=== PATIENT | female | born 1960 | race Caucasian/White ===

== ENCOUNTER → 2019-03-23 | Outpatient (CLI) | payer OTHER ==
[~2019-03-23] MED LIST: APIX5TAB PO; ASPI-496 PO; DILT180C53 PO; FLEC100T PO; REGADENOSON 0.4 MG/5 ML SYRINGE ONE
== END | disposition home or self-care (01) ==
LOC: CFH 08:20
PROVIDERS: ATTEND Nurse Practitioner Family
DX: Z01.810 Encounter for preprocedural cardiovascular examination (principal); I48.0 Paroxysmal atrial fibrillation; Z83.3 Family history of diabetes mellitus; Z82.49 Family history of ischemic heart disease and other diseases of the circulatory system
CPT/HCPCS: 78452; 93017; A9502; J2785

== ENCOUNTER → 2019-05-15 | Outpatient (CLI) | payer OTHER ==
[~2019-05-15] MED LIST changes: +HYDR-36 PO; +METH750T87 PO; +ONDA4TAB7 PO; -REGADENOSON 0.4 MG/5 ML SYRINGE ONE
[2019-05-15 11:16] LABS: INTERNATIONAL NORMALIZED RATIO 0.98 (0.93-1.1); PROTHROMBIN TIME 10.3 Seconds (9.6-11.5)
== END | disposition home or self-care (01) ==
LOC: LAB 10:52
PROVIDERS: ATTEND Neurological Surgery
CPT/HCPCS: 36415; 85610; 85730

== ENCOUNTER 2019-05-16 09:50 | Inpatient (IN) | payer OTHER ==
[~2019-05-16] VITALS: Ht 160 cm; Wt 123.2 kg
[~2019-05-16 09:50] MED LIST changes: +BACITRACIN 50,000 UNIT ONE; +BUPIVACAINE/PF 0.5% ONE; +EPINEPHRINE 1 MG/ML, 1ML ONE; -HYDR-36 PO; -METH750T87 PO; -ONDA4TAB7 PO; +THROMBIN 5,000 UNIT VIAL TP ONE
[2019-05-16] MEDS ORDERED: LACTATED RINGERS 1,000 ML IV SCH (10:19)
[2019-05-16 10:54] VITALS: BP 123/78
[2019-05-16] MEDS ORDERED: MIDAZOLAM 1 MG/ML, 2ML ONE (13:13)
[2019-05-16] MEDS ORDERED: SUCCINYLCHOLINE 20 MG/ML, 10ML ONE (13:14)
[2019-05-16] MEDS ORDERED: ONDANSETRON 2MG/ML, 2ML ONE (13:14)
[2019-05-16] MEDS ORDERED: PROPOFOL 10 MG/ML, 50ML ONE (13:14)
[2019-05-16] MEDS ORDERED: CEFAZOLIN 1,000 MG ONE (13:14)
[2019-05-16] MEDS ORDERED: DEXAMETHASONE 4 MG/ML, 5ML ONE (13:14)
[2019-05-16] MEDS ORDERED: FENTANYL PF 250 MCG/5ML ONE (13:14)
[2019-05-16] MEDS ORDERED: PROPOFOL 10 MG/ML, 20ML ONE (13:14)
[2019-05-16] MEDS ORDERED: LABETALOL 5MG/ML, 20ML IV PRN (15:00)
[2019-05-16] MEDS ORDERED: LORazepam 2 MG/ML, 1ML IVPush PRN (15:00)
[2019-05-16] MEDS ORDERED: HYDROmorphone 2 MG/ML, 1ML IVPush PRN (15:00)
[2019-05-16] MEDS ORDERED: FENTANYL PF 100 MCG/2ML IV PRN (15:00)
[2019-05-16] MEDS ORDERED: OXYcodone 5 MG/5 ML ORAL.SOL UDC PO PRN ×2 (15:00→15:30)
[2019-05-16] MEDS ORDERED: DIAZEPAM 5 MG/ML, 2ML IVPush PRN (15:00)
[2019-05-16] MEDS ORDERED: ONDANSETRON 2MG/ML, 2ML IV PRN ×2 (15:00→18:00)
[2019-05-16] MEDS ORDERED: OXYcodone 5 MG/5 ML ORAL.SOL UDC ONE (15:59)
[2019-05-16] MEDS ORDERED: METHOCARBAMOL 1,000 MG in DEXTROSE 5% 100 ML IV ONE (16:00)
[2019-05-16] MEDS ORDERED: HYDROmorphone 1 MG/ML, 1ML INJ ONE (16:16)
[2019-05-16] MEDS: HYDROmorphone 2 MG/ML, 1ML IVPush PRN ×2 (16:18→16:28)
[2019-05-16] MEDS ORDERED: PROMETHAZINE 25 MG/ML, 1ML ONE (17:06)
[2019-05-16 17:30] VITALS: BP 142/87
[2019-05-16] MEDS ORDERED: ACETAMINOPHEN 650 MG SUPP PR PRN (18:00)
[2019-05-16] MEDS ORDERED: BISACODYL 10 MG SUPP PR PRN (18:00)
[2019-05-16] MEDS ORDERED: ACETAMINOPHEN 325 MG TABLET PO PRN (18:00)
[2019-05-16] MEDS ORDERED: MAGNESIUM HYDROXIDE 8%, 30ML UDC PO PRN (18:00)
[2019-05-16] MEDS ORDERED: PROMETHAZINE 25 MG/ML, 1ML IM PRN (18:00)
[2019-05-16] MEDS ORDERED: DIPHENHYDRAMINE 25 MG CAPSULE PO PRN (18:00)
[2019-05-16] MEDS ORDERED: morphine SULFATE 10 MG/ML, 1ML IV PRN (18:00)
[2019-05-16] MEDS ORDERED: METHOCARBAMOL 750 MG TABLET PO PRN (18:00)
[2019-05-16] MEDS ORDERED: DIPHENHYDRAMINE 50 MG/ML, 1ML IM PRN (18:00)
[2019-05-16] MEDS: DEXAMETHASONE 4 MG/ML, 1ML IV SCH (18:49)
[2019-05-16] MEDS: D5%-0.9% NACL+KCL 20MEQ 1,000 ML IV SCH (18:49)
[2019-05-16] MEDS: HYDROcodone/APAP 10/325 MG TABLET PO PRN (20:24)
[2019-05-16 20:25] VITALS: BP 158/91
[2019-05-16] MEDS: FLECAINIDE 100MG TABLET PO SCH (20:25)
[2019-05-16] MEDS: CEFAZOLIN PMX 2GM/50ML 50 ML IVPB SCH (21:59)
[2019-05-17 00:02] VITALS: BP 124/64
[2019-05-17] MEDS: HYDROcodone/APAP 10/325 MG TABLET PO PRN ×2 (00:39→06:32)
[2019-05-17] MEDS: DEXAMETHASONE 4 MG/ML, 1ML IV SCH ×3 (00:39→13:40)
[2019-05-17 04:16] VITALS: BP 108/63
[2019-05-17] MEDS: D5%-0.9% NACL+KCL 20MEQ 1,000 ML IV SCH (05:08)
[2019-05-17] MEDS: CEFAZOLIN PMX 2GM/50ML 50 ML IVPB SCH ×2 (05:12→13:40)
[2019-05-17] MEDS: FLECAINIDE 100MG TABLET PO SCH (08:44)
[2019-05-17] MEDS ORDERED: SENNA/DOCUSATE TABLET PO SCH (09:00)
[2019-05-17 09:10] VITALS: BP 123/73
[2019-05-17] MEDS ORDERED: HYDR-36 PO (10:48)
[2019-05-17] MEDS ORDERED: METH750T87 PO (10:49)
[2019-05-17] MEDS ORDERED: ONDA4TAB7 PO (10:49)
[2019-05-17 14:16] VITALS: BP 113/65
== END 2019-05-17 15:04 | disposition home or self-care (01) | DRG 519 ==
LOC: ORIP 09:50 → 4NE 17:16 → DCLOUNGE 05-17 14:48
PROVIDERS: ADMIT Neurological Surgery; ATTEND Neurological Surgery
PROC: 00NW0ZZ Release Cervical Spinal Cord, Open Approach (ICD-10-PCS; 2019-05-16)
PROC: 0RB30ZZ Excision of Cervical Vertebral Disc, Open Approach (ICD-10-PCS; 2019-05-16)
PROC: 4A11X4G Monitoring of Peripheral Nervous Electrical Activity, Intraoperative, External Approach (ICD-10-PCS; 2019-05-16)
PROC: 01N10ZZ Release Cervical Nerve, Open Approach (ICD-10-PCS; principal; 2019-05-16 12:00)
DX: M48.02 Spinal stenosis, cervical region (principal); G95.20 Unspecified cord compression; I48.91 Unspecified atrial fibrillation; M54.12 Radiculopathy, cervical region
CPT/HCPCS: 72040; S0020; C1713; C1776; G0378; J0171; J0690; J1100; J1170; J2250; J2405; J2704; J3010; C1762; J0330; J2800; J3480; J7120

== ENCOUNTER → 2021-02-19 | Outpatient (CLI) | payer OTHER ==
[~2021-02-19] MED LIST changes: +ASPI81TA45 PO; -BACITRACIN 50,000 UNIT ONE; -BUPIVACAINE/PF 0.5% ONE; -EPINEPHRINE 1 MG/ML, 1ML ONE; +HYDR-3248 PO; +METH750T87 PO; +ONDA4TAB7 PO; -THROMBIN 5,000 UNIT VIAL TP ONE
== END | disposition home or self-care (01) ==
LOC: STAR 07:20
PROVIDERS: ATTEND Orthopaedic Surgery
DX: Z01.812 Encounter for preprocedural laboratory examination (principal); Z20.822 Contact with and (suspected) exposure to COVID-19; M23.351 Other meniscus derangements, posterior horn of lateral meniscus, right knee
CPT/HCPCS: 36415; 87635

== ENCOUNTER 2021-02-24 05:18 | Day surgery (SDC) | payer OTHER ==
[~2021-02-24] VITALS: Ht 160 cm; Wt 128.1 kg
[2021-02-24 06:17] VITALS: BP 132/82
== END 2021-02-24 10:20 | disposition home or self-care (01) ==
LOC: OUT 05:18
PROVIDERS: ATTEND Orthopaedic Surgery
DX: M23.221 Derangement of posterior horn of medial meniscus due to old tear or injury, right knee (principal); M23.241 Derangement of anterior horn of lateral meniscus due to old tear or injury, right knee; M22.41 Chondromalacia patellae, right knee; E66.01 Morbid (severe) obesity due to excess calories; I48.91 Unspecified atrial fibrillation
CPT/HCPCS: 29880; J0171; J2250; J3010; J7120